=== PATIENT | female | born 1990 | race Caucasian/White ===

== ENCOUNTER 2020-03-08 09:21 | Emergency (ER) | payer BC ==
[2020-03-08 09:26] VITALS: TEMP 97.3; BMI 45.3
[2020-03-08] MEDS ORDERED: DEXAMETHASONE SOD PHOSPHATE 10 MG/1 ML VIAL ONE (09:37)
[2020-03-08] MEDS ORDERED: SODIUM CHLORIDE 1,000 ML IV STA (09:48)
[2020-03-08] MEDS ORDERED: ALBUTEROL SO4 HFA INHALER IH ONE ×2 (09:48→12:42)
[2020-03-08] MEDS ORDERED: MAGNESIUM SULF 50% (8.12 MEQ/2 ML-1 GM VIAL) IVPB ONE (09:58)
[2020-03-08] MEDS ORDERED: MAGNESIUM 1GM/D5W - 2 GM/200 ML IVPB IVPB ONE (10:09)
[2020-03-08 10:27] LABS: BASO % 0.6 % (0-2.0); HEMATOCRIT 41.8 % (32.4-45.2); HEMOGLOBIN 13.8 GM/dL (10.7-15.3); LYMPH % 18.3 % (8-40); MCH 27.6 pg (25.7-33.7); MEAN CELL VOLUME 83.8 fl (80-96); MEAN PLT VOLUME 9.5 fl (7.5-11.1); MONO % 5.2 % (3.8-10.2); NEUT % 72.9 % (42.8-82.8); PLATELET COUNT 219 K/MM3 (134-434); RBC 4.99 M/mm3 (3.60-5.2); RDW 14.3 % (11.6-15.6); WHITE BLOOD COUNT 9.9 K/mm3 (4.0-10.0)
[2020-03-08 10:39] LABS: POTASSIUM 4.3 mmol/L (3.5-5.1)
[2020-03-08 10:42] LABS: ALBUMIN 3.9 g/dl (3.4-5.0); BLOOD UREA NITROGEN 13.1 mg/dL (7-18); CALCIUM 8.9 mg/dL (8.5-10.1)
[2020-03-08 10:45] LABS: CREATININE 0.9 mg/dL (0.55-1.3)
[2020-03-08 10:47] LABS: BILIRUBIN,TOTAL 0.3 mg/dL (0.2-1); TOT PROT 7.4 g/dl (6.4-8.2)
[2020-03-08 12:47] VITALS: BP 128/79; PULSE 99
== END 2020-03-08 12:49 | disposition home or self-care (01) ==
LOC: JER 09:21
PROC: 3E0F7GC Introduction of Other Therapeutic Substance into Respiratory Tract, Via Natural or Artificial Opening (ICD-10-PCS; principal; 2020-03-08)
PROC: 3E033NZ Introduction of Analgesics, Hypnotics, Sedatives into Peripheral Vein, Percutaneous Approach (ICD-10-PCS; 2020-03-08)
PROC: 3E0337Z Introduction of Electrolytic and Water Balance Substance into Peripheral Vein, Percutaneous Approach (ICD-10-PCS; 2020-03-08)
DX: J45.21 Mild intermittent asthma with (acute) exacerbation (principal)
CPT/HCPCS: 36415; 71045-TC-FY; 80053; 84703; 85025; 87804; 93005; 93010; 99285-25; C9803; U0003

== ENCOUNTER 2022-08-03 16:25 | Emergency (ER) | payer BC ==
[2022-08-03 16:49] VITALS: BP 116/76; PULSE 92; RESP 18; TEMP 99.6; BMI 43.4
[2022-08-03] MEDS ORDERED: predniSONE 20 MG TABLET (UD) PO ONE (17:13)
[2022-08-03] MEDS ORDERED: ALBUTEROL SO4 2.5/IPRATROPIUM 0.5 INH SOL 3 ML VIAL.NEB. NEB ONE ×2 (17:13→17:19)
[2022-08-03] MEDS ORDERED: predniSONE 20 MG TABLET (UD) ONE (17:19)
== END 2022-08-03 17:52 | disposition home or self-care (01) ==
LOC: FER 16:25
PROC: 3E0F7GC Introduction of Other Therapeutic Substance into Respiratory Tract, Via Natural or Artificial Opening (ICD-10-PCS; principal; 2022-08-03)
DX: R05.1 Acute cough (principal)
CPT/HCPCS: 71046-TC-FY; 99283-25